=== PATIENT | male | born 1990 | race Caucasian/White ===

== ENCOUNTER 2017-02-19 13:13 | Emergency (ER) | payer MEDICAID ==
[~2017-02-19] VITALS: Wt 81.0 kg
[~2017-02-19 13:13] MED LIST: ACET325T33 PO; IBUP-1542 PO; OSLT75C PO
[2017-02-19] MEDS: KETOROLAC 60 MG INJ IM STA ×2 (13:41→13:48)
[2017-02-19] MEDS ORDERED: IBUPROFEN 600 MG TAB PO ONE (14:00)
--- NOTE | 2017-02-19 14:16 | RADRPT ---
PROCEDURE: XR Chest. CLINICAL INDICATION: chest pain TECHNIQUE: Single frontal view of the chest was obtained COMPARISON: Chest x-ray 09/25/2015 FINDINGS: There are low lung volumes. The cardiomediastinal silhouette is within normal limits. No pneumothorax, pleural effusion, or consolidation is identified. There is no evidence of pulmonary vascular congestion. The osseous structures, as visualized, are unremarkable. IMPRESSION: No evidence of an acute cardiopulmonary process. Low lung volumes. RPTAT: QQ Physician Saud Date Time Electronically viewed and signed by Physician Saud on 02/19/2017 14:16 RC/
[2017-02-19] MEDS ORDERED: IBUP-1542 PO (14:31)
--- NOTE | 2017-02-19 14:37 | ERD ---
ER Documentation Chief Complaint Date/Time DATE: 02/19/17 TIME: 14:33 Chief Complaint PT HERE FOR PALPITATIONS, CHEST PAIN HPI 27-year-old male patient with no significant past medical history presents to the ED complaining of palpitations and chest pain that started 2 hours ago. Patient reports that it feels like a squeezing sensation. Rates the pain a 8 out of 10. Denies any trauma. Denies feeling anxious or nervous. States that when he presses onto his chest region, massages it, it feels better. Denies any shortness of breath, dyspnea on exertion, orthopnea, wheezing, fever, chills , abdominal pain, nausea, vomiting. Denies any recent traveling. Denies any leg swelling. ROS All systems reviewed and are negative except as per history of present illness. Medications Home Meds Active Scripts Ibuprofen* (Motrin*) 600 Mg Tab, 600 MG PO Q6, #30 TAB Prov:YOLANDA BRICENO PA-C 02/19/17 Acetaminophen* (Tylenol*) 325 Mg Tablet, 2 TAB PO Q6 Y for PAIN AND OR ELEVATED TEMP, #20 TAB Prov:ISMA POLLACK MD 09/25/15 Ibuprofen* (Motrin*) 600 Mg Tab, 600 MG PO Q6H Y for PAIN AND OR ELEVATED TEMP, #30 TAB Prov:ISMA POLLACK MD 09/25/15 Oseltamivir Phosphate* (Tamiflu*) 75 Mg Capsule, 75 MG PO BID for 5 Days, CAP Prov:ISMA POLLACK MD 09/25/15 Allergies Allergies: Coded Allergies: No Known Allergy (Unverified , 09/25/15) PMhx/Soc History of Surgery: No Anesthesia Reaction: No Hx Neurological Disorder: No Hx Respiratory Disorders: No Hx Cardiac Disorders: No Hx Psychiatric Problems: No Hx Miscellaneous Medical Probl: No Hx Alcohol Use: Yes (5 drinks/ month) Hx Substance Use: No Hx Tobacco Use: No Smoking Status: Never smoker Physical Exam Vitals Vital Signs Date Time Temp Pulse Resp B/P Pulse Ox O2 Delivery O2 Flow Rate FiO2 02/19/17 13:18 98.3 80 17 138/76 97 Physical Exam Const: [id number], well-nourished. In no acute distress. Head: Atraumatic, normocephalic Eyes: Normal Conjunctiva without injection. No purulent discharge. PERRL. EOMI ENT: Normal external ear. Ear canal without erythema. Tympanic membrane pearly [place] without effusion or bulging. Nasal canal clear with normal turbinates. Moist oropharynx without tonsillar exudates. Non-erythematous pharynx. Uvula midline. No drooling. No trismus. Neck: Full range of motion. No meningismus. No cervical lymphadenopathy. Resp: Clear to auscultation bilaterally. No wheezing, rhonchi, rales, or crackles. No accessory muscle use. No retractions. Cardio: Regular rate and rhythm. No murmurs, rubs or gallops. Chest: Tenderness palpation of the right anterior chest. Pain is reproducible. Abd: Soft, non tender, non distended. Normal bowel sounds. No palpable masses. No rebound tenderness. No guarding. Skin: No petechiae or rashes Back: No midline tenderness. No CVA tenderness. Ext: No cyanosis, or edema. Neur: Awake and alert. Psych: Normal Mood and Affect Results 24 hrs Current Medications Medications (Trade) Dose Ordered Sig/Su Route PRN Reason Start Time Stop Time Status Last Admin Dose Admin Ketorolac Tromethamine (Toradol) 60 mg ONCE STAT IM 02/19/17 13:27 02/19/17 13:48 DC Ibuprofen (Motrin) 600 mg ONCE ONCE PO 02/19/17 14:00 02/19/17 14:01 DC 02/19/17 14:05 Procedures/MDM This is a 27-year-old male patient with no significant past medical history presents the ED complaining of palpitations and chest pain. Patient is afebrile and nontoxic-appearing. Patient has normal vital signs. An EKG and chest x-ray was ordered to further evaluate patient. EKG reviewed and interpreted by Dr. Ceja Rate/Rhythm: [76 bpm, Normal Sinus Rhythm] No ectopy, no ST elevations, normal axis. QRS, ST, T-waves: [No changes consistent w/ acute ischemia] Impression: [No evidence of ischemia or arrhythmia] PROCEDURE: XR Chest. CLINICAL INDICATION: chest pain TECHNIQUE: Single frontal view of the chest was obtained COMPARISON: Chest x-ray 09/25/2015 FINDINGS: There are low lung volumes. The cardiomediastinal silhouette is within normal limits. No pneumothorax, pleural effusion, or consolidation is identified. There is no evidence of pulmonary vascular congestion. The osseous structures, as visualized, are unremarkable. IMPRESSION: No evidence of an acute cardiopulmonary process. Low lung volumes. Patient symptoms are likely secondary to chest wall pain. Low suspicion for acute myocardial infarction, anxiety, pneumothorax, pneumonia, cardiac tamponade , pulmonary embolism, AAA, aortic dissection, Boerhaave's syndrome, cardiac dysrhythmias,meningitis, intracranial bleed, seizure, stroke, TIA or other emergent conditions. Discharge medications: Ibuprofen Follow up with primary care physician in 1-2 days. Instructed patient to return to the ED sooner for any worsening symptoms. Patient's questions were answered. Patient understood and agreed with discharge plan. Patient discharged stable. Departure Diagnosis: Primary Impression: Chest pain Chest pain type: unspecified Qualified Code: R07.9 - Chest pain, unspecified type Condition: Stable Patient Instructions: Chest Wall Pain, Costochondritis, Palpitations Referrals: [facility] YOU HAVE RECEIVED A MEDICAL SCREENING EXAM AND THE RESULTS INDICATE THAT YOU DO NOT HAVE A CONDITION THAT REQUIRES URGENT TREATMENT IN THE EMERGENCY DEPARTMENT. FURTHER EVALUATION AND TREATMENT OF YOUR CONDITION CAN WAIT UNTIL YOU ARE SEEN IN YOUR DOCTORS OFFICE WITHIN THE NEXT 1-2 DAYS. IT IS YOUR RESPONSIBILITY TO MAKE AN APPOINTMENT FOR [facility]. IF YOU HAVE A PRIMARY DOCTOR --you should call your primary doctor and schedule an appointment IF YOU DO NOT HAVE A PRIMARY DOCTOR YOU CAN CALL OUR PHYSICIAN REFERRAL HOTLINE AT IF YOU CAN NOT AFFORD TO SEE A PHYSICIAN YOU CAN CHOSE FROM THE FOLLOWING [facility] [address] [facility] [address] [facility] [address] [facility] [address] [facility]. [facility] [address] [facility]. [facility]. [address] [facility] YOU HAVE RECEIVED A MEDICAL SCREENING EXAM AND THE RESULTS INDICATE THAT YOU DO NOT HAVE A CONDITION THAT REQUIRES URGENT TREATMENT IN THE EMERGENCY DEPARTMENT. FURTHER EVALUATION AND TREATMENT OF YOUR CONDITION CAN WAIT UNTIL YOU ARE SEEN IN YOUR DOCTORS OFFICE WITHIN THE NEXT 1-2 DAYS. IT IS YOUR RESPONSIBILITY TO MAKE AN APPOINTMENT FOR FOLOW-UP CARE. IF YOU HAVE A PRIMARY DOCTOR --you should call your primary doctor and schedule and appointment IF YOU DO NOT HAVE A PRIMARY DOCTOR YOU CAN CALL OUR PHYSICIAN REFERRAL HOTLINE AT . IF YOU CAN NOT AFFORD TO SEE A PHYSICIAN YOU CAN CHOSE FROM THE FOLLOWING [facility] INSTITUTIONS: [facility] [address] [place] [address] [facility] [address] [place] [address] [facility] [address] [place] [address] [facility] URGENT CARE/SPECIALTIES Additional Instructions: Llame al doctor MAANA y linette misty DESI PARA DENTRO DE 2-3 MONCADA.Dgale a la secretaria que nosotros le instruimos hacer esta desi.Avise o llame si flanagan condicin se empeora antes de la desi. Regresa aqui si peor o no mejor. YOLANDA BRICENO PA-C Feb 19, 2017 14:37
== END 2017-02-19 14:39 | disposition home or self-care (01) ==
LOC: FTE 13:13
DX: R07.9 Chest pain, unspecified (principal)
CPT/HCPCS: 71010; 93005; J1885; Z7502; Z7610

== ENCOUNTER 2018-11-17 17:17 | Emergency (ER) | payer SELFPAY ==
[~2018-11-17] VITALS: Ht 165.1 cm; Wt 77.7 kg
[~2018-11-17 17:17] MED LIST changes: +OSEL75CA23 PO; -OSLT75C PO
[2018-11-17 17:20] VITALS: BP 133/73; PULSE 83; RESP 18; Ht 165.1 cm; Wt 77.7 kg
[2018-11-17] MEDS ORDERED: KETOROLAC 60 MG INJ IM STA (17:34)
[2018-11-17] MEDS ORDERED: traMADol 50 MG TAB PO ONE (18:00)
[2018-11-17] MEDS ORDERED: NAPR-985 PO (20:57)
--- NOTE | 2018-11-18 00:24 | ERD ---
ER Documentation Chief Complaint Chief Complaint left shoulder pain s/p fell playing soccer HPI History of Present Illness: 28-year-old male with no past medical history coming in today with complaint of left shoulder pain after falling while playing soccer. Patient reports he landed directly onto his left shoulder. Denies any other associated symptoms. At home pharmacological/nonpharmacological treatment for symptoms: Denies Denies social concerns; Denies recent foreign travel ROS All systems reviewed and are negative except as per history of present illness. Medications Home Meds Active Scripts Naproxen* (Naprosyn*) 500 Mg Tablet, 500 MG PO BID PRN for PAIN AND/OR INFLAMMATION, #30 TAB Prov:SONYA WOOD V [facility] EDUCATION COORDINATOR 11/17/18 Ibuprofen* (Motrin*) 600 Mg Tab, 600 MG PO Q6, #30 TAB Prov:YOLANDA BRICENO PA-C 02/19/17 Acetaminophen* (Tylenol*) 325 Mg Tablet, 2 TAB PO Q6 PRN for PAIN AND OR ELEVATED TEMP, #20 TAB Prov:ISMA POLLACK MD 09/25/15 Ibuprofen* (Motrin*) 600 Mg Tab, 600 MG PO Q6H PRN for PAIN AND OR ELEVATED TEMP, #30 TAB Prov:ISMA POLLACK MD 09/25/15 Oseltamivir Phosphate* (Tamiflu*) 75 Mg Capsule, 75 MG PO BID for 5 Days, CAP Prov:ISMA POLLACK MD 09/25/15 Allergies Allergies: Coded Allergies: No Known Allergy (Unverified , 09/25/15) PMhx/Soc History of Surgery: No Anesthesia Reaction: No Hx Neurological Disorder: No Hx Respiratory Disorders: No Hx Cardiac Disorders: No Hx Psychiatric Problems: No Hx Miscellaneous Medical Probl: No Hx Alcohol Use: Yes (5 drinks/ month) Hx Substance Use: No Hx Tobacco Use: No Smoking Status: Never smoker FmHx Family History: No diabetes, No coronary disease Physical Exam Vitals Vital Signs Date Temp Pulse Resp B/P (MAP) Pulse Ox O2 O2 Flow FiO2 Time Delivery Rate 11/17/18 98.5 83 18 133/73 99 17:20 (93) Physical Exam Const: No acute distress Head: Atraumatic Eyes: Normal Conjunctiva ENT: Normal External Ears, Nose and Mouth. Neck: Full range of motion. No meningismus. Resp: Clear to auscultation bilaterally Cardio: Regular rate and rhythm, no murmurs Abd: Soft, non tender, non distended. Normal bowel sounds Skin: No petechiae or rashes Back: No midline or flank tenderness Ext: No cyanosis, or edema. Decreased range of motion to left shoulder, secondary to pain neurovascularly intact distally. Neur: Awake and alert Psych: Normal Mood and Affect Results 24 hrs Laboratory Tests Test 11/17/18 17:50 POC Beta HCG, Qualitative NEGATIVE Current Medications Medications Dose Sig/Su Start Time Status Last (Trade) Ordered Route PRN Stop Time Admin Dose Reason Admin Ketorolac 60 mg ONCE STAT 11/17/18 DC 11/17/18 Tromethamine IM 17:34 11/17/18 17:44 (Toradol) 17:36 Tramadol 50 mg ONCE ONCE 11/17/18 DC 11/17/18 HCl PO 18:00 11/17/18 17:44 (Ultram) 18:01 Procedures/MDM ED course includes a thorough examination and history. Medications: Ketorolac, tramadol shoulder x-ray Imaging: Labs: -- Low suspicion for life-threatening medical emergency. Low suspicion for orthopedic emergency that requires hospitalization or immediate surgical intervention. Otherwise healthy patient presenting with constellation of symptoms likely representing contusion/shoulder injury as characterized by history, physical exam findings, radiologic findings. No acute fractures noted on radiology report from radiologist. Patient reassessment: No respiratory distress, otherwise relatively well appearing and nontoxic. Patient with decreased pain after medication administration. ED sling application done. Disposition given. Patient educated on diagnoses, prescriptions, follow-up care, return precautions. Strict return precautions given for worsening condition; questions answered discharge. Disposition for discharge with followup in 2 days with PCP/clinic. Departure Diagnosis: Primary Impression: Shoulder injury Encounter type: initial encounter Laterality: left Qualified Codes: S4 9.92XA - Unspecified injury of left shoulder and upper arm, initial encounter Condition: Stable Patient Instructions: Shoulder and Upper Back Stretch, Shoulder Immobilizer, Shoulder Contusion Referrals: [facility] YOU HAVE RECEIVED A MEDICAL SCREENING EXAM AND THE RESULTS INDICATE THAT YOU DO NOT HAVE A CONDITION THAT REQUIRES URGENT TREATMENT IN THE EMERGENCY DEPARTMENT. FURTHER EVALUATION AND TREATMENT OF YOUR CONDITION CAN WAIT UNTIL YOU ARE SEEN IN YOUR DOCTORS OFFICE WITHIN THE NEXT 1-2 DAYS. IT IS YOUR RESPONSIBILITY TO MAKE AN APPOINTMENT FOR FOLOW-UP CARE. IF YOU HAVE A PRIMARY DOCTOR --you should call your primary doctor and schedule an appointment IF YOU DO NOT HAVE A PRIMARY DOCTOR YOU CAN CALL OUR PHYSICIAN REFERRAL HOTLINE AT IF YOU CAN NOT AFFORD TO SEE A PHYSICIAN YOU CAN CHOSE FROM THE FOLLOWING [facility] [address] [facility] [address] [facility] [address] [facility] [address] [facility] [address] [facility]. [facility] [address] [facility]. [facility] YOU HAVE RECEIVED A MEDICAL SCREENING EXAM AND THE RESULTS INDICATE THAT YOU DO NOT HAVE A CONDITION THAT REQUIRES URGENT TREATMENT IN THE EMERGENCY DEPARTMENT. FURTHER EVALUATION AND TREATMENT OF YOUR CONDITION CAN WAIT UNTIL YOU ARE SEEN IN YOUR DOCTORS OFFICE WITHIN THE NEXT 1-2 DAYS. IT IS YOUR RESPONSIBILITY TO MAKE AN APPOINTMENT FOR FOLOW-UP CARE. IF YOU HAVE A PRIMARY DOCTOR --you should call your primary doctor and schedule and appointment IF YOU DO NOT HAVE A PRIMARY DOCTOR YOU CAN CALL OUR PHYSICIAN REFERRAL HOTLINE AT . IF YOU CAN NOT AFFORD TO SEE A PHYSICIAN YOU CAN CHOSE FROM THE FOLLOWING [facility] INSTITUTIONS: [facility] [address] [place] [address] [facility] [address] [place] [address] [facility] [address] [place] [address] Additional Instructions: Thank you very much for allowing us to participate in your care. Your health and safety is our top priority at [facility]. It is important to read all discharge instructions and education provided in your discharge packet. *There are no fractures/broken bone seen on your x-ray. If you continue to have unchanged pain, see your primary care doctor for further evaluation; possible further testing can be done to determine if a ligament/tendon may be damaged if your pain continue/worsen.* Call your primary care doctor TOMORROW for an appointment during the next 2-4 days and bring all the information and medications prescribed. Have prescriptions filled and follow precisely the directions on the label. -Naproxen is a anti-inflammatory/pain medication; take this medication daily as prescribed for the next week to help with swelling/inflammation/pain. If the symptoms get worse and your provider is unavailable, return to the Emergency Department immediately. SONYA WOOD NP November 18, 2018 00:24
== END 2018-11-17 21:04 | disposition home or self-care (01) ==
LOC: FTE 17:17
DX: S49.92XA Unspecified injury of left shoulder and upper arm, initial encounter (principal); W18.39XA Other fall on same level, initial encounter; Y92.322 Soccer field as the place of occurrence of the external cause
CPT/HCPCS: 73030; 81025; 96372; 99284; J1885